=== PATIENT | female | born 1950 | race Caucasian/White ===

== ENCOUNTER 2017-05-16 11:50 | Emergency (ER) | payer MEDICARE, BC ==
[2017-05-16] MEDS ORDERED: ACETAMINOPHEN 325 MG TAB PO ONE (12:29)
[2017-05-16] MEDS ORDERED: CLONIDINE HCL 0.1 MG TABLET PO ONE (12:29)
--- NOTE | 2017-05-16 12:29 | Emergency Department Record ---
History of Present Illness - General Chief Complaint: Headache Migraine Stated Complaint: DE DIOS Time Seen by Provider: 05/16/17 12:23 Source: Patient Mode of Arrival: Ambulatory - History of Present Illness Initial Comments: The patient states that Dr. Hall her PCP discontinued her BP medicines lasty September because after her halfway she was running a lowe blood pressure. About 3 weeks ago, around 04-28-17 she was seen in his office for a regular check up and reported at that time that she was getting headaches. Her blood pressure that day she recalls was 140/ 70', so her medicine was not re-started at that time. Since then her headaches have been worsening, and now she is running a high blood pressure. Today her headache was bad again, at the back of her head, her eyes, and ears feel pressure in them, and she feels that it is likely due to her blood pressure. She denies any stroke like symptoms such as slurred speech, unilateral weakness, vision changes, or confusion. She took one enalaprill and one indipamide at 10;30 this morning ( 2 hours ago), but her headache has not changed, so she came here. Complaint: Headache Onset/Timin -: Month(s) Onset Description: Gradual Location: Occipital Severity: Moderate Severity scale (1-10): 9 Quality: Full Consistency: Constant Improves With: Nothing Worsens With: None Treatments Prior to Arrival: Other Treatment Prior to Arrival Comment:: states took her blood pressure medicine for her high blood pressure of 168/ - Related Data Home Medications Medication Instructions Recorded Confirmed Last Taken Oxybutynin Chloride [Oxybutynin 5 mg PO DAILY 05/16/17 05/16/17 05/16/17 Chloride ER] Allergies Allergy/AdvReac Type Severity Reaction Status Date / Time hydrocodone bitartrate Allergy Mild NAUSEA Verified 05/16/17 12:04 [From Vicodin] Travel Screening - Travel/Exposure Within Last 30 Days Have you traveled within the last 30 days?: No - Travel/Exposure Within Last Year Have you traveled outside the [place] in the last year?: No - Additonal Travel Details Have you been exposed to anyone with a communicable illness?: No - Travel Symptoms Symptom Screening: None Review of Systems Reviewed: No additional complaints except as noted below Constitutional: Reports: As per HPI. Denies: Chills, Fever, Malaise, Night sweats, Weakness, Weight change Eyes: Reports: As per HPI. Denies: Eye discharge, Eye pain, Photophobia, Vision change ENT: Reports: As per HPI. Denies: Congestion, Dental pain, Ear pain, Epistaxis , Hearing loss, Throat pain Respiratory: Reports: As per HPI. Denies: Cough, Dyspnea, Hemoptysis, Stridor, Wheezes Cardiovascular: Reports: As per HPI. Denies: Arrhythmia, Chest pain, Dyspnea on exertion, Edema, Murmurs, Orthopnea, Palpitations, Paroxysmal nocturnal dyspnea, Rheumatic Fever, Syncope Endocrine: Reports: As per HPI. Denies: Fatigue, Heat or cold intolerance, Polydipsia, Polyuria Gastrointestinal: Reports: As per HPI. Denies: Abdominal pain, Constipation, Diarrhea, Hematemesis, Hematochezia, Melena, Nausea, Vomiting Genitourinary: Reports: As per HPI. Denies: Abnormal menses, Discharge, Dyspareunia, Dysuria, Frequency, Hematuria, Incontinence, Retention, Urgency Musculoskeletal: Reports: As per HPI. Denies: Arthralgia, Back pain, Gout, Joint swelling, Myalgia, Neck pain Skin: Reports: As per HPI. Denies: Bruising, Change in color, Change in hair/ nails, Lesions, Pruritus, Rash Neurological: Reports: As per HPI. Denies: Abnormal gait, Confusion, Headache, Numbness, Paresthesias, Seizure, Tingling, Tremors, Vertigo, Weakness Psychiatric: Reports: As per HPI. Denies: Anxiety, Auditory hallucinations, Depression, Homicidal thoughts, Suicidal thoughts, Visual hallucinations Hematological/Lymphatic: Reports: As per HPI. Denies: Anemia, Blood Clots, Easy bleeding, Easy bruising, Swollen glands Past Medical History - SOCIAL HISTORY Smoking Status: Never smoker Alcohol Use: Occasional Drug Use: None - RESPIRATORY Hx Respiratory Disorders: No - CARDIOVASCULAR Hx Cardio Disorders: Yes Hx Hypertension: Yes - GI Hx GI Disorders: No - Hx Genitourinary Disorders: Yes Hx UTI: Yes - ENDOCRINE Hx Endocrine Disorders: No - MUSCULOSKELETAL Hx Arthritis: Yes - PSYCH Hx Psych Problems: No - HEMATOLOGY/ONCOLOGY Hx Chemotherapy: No Hx Radiation Therapy: No Family Medical History Any Significant Family History?: No Physical Exam - General General Appearance: Alert, Oriented x3, Cooperative, No acute distress - Head Head exam: Normal inspection - Eye Eye exam: Normal appearance, PERRL Pupils: Normal accommodation - ENT ENT exam: Normal exam, Mucous membranes moist, Normal external ear exam, Normal orophraynx, TM's normal bilaterally Ear exam: Normal external inspection. negative: External canal tenderness Nasal Exam: Normal inspection. negative: Discharge, Sinus tenderness Mouth exam: Normal external inspection, Tongue normal Teeth exam: Normal inspection. negative: Dental caries Throat exam: Normal inspection. negative: Tonsillar erythema, Tonsillar exudate - Neck Neck exam: Normal inspection, Full ROM. negative: Tenderness - Respiratory Respiratory exam: Normal lung sounds bilaterally. negative: Respiratory distress - Cardiovascular Cardiovascular Exam: Regular rate, Normal rhythm, Normal heart sounds - GI/Abdominal GI/Abdominal exam: Soft, Normal bowel sounds. negative: Tenderness - Rectal Rectal exam: Deferred - exam: Deferred - Extremities Extremities exam: Normal inspection, Full ROM, Normal capillary refill. negative: Tenderness - Back Back exam: Reports: Normal inspection, Full ROM. Denies: Muscle spasm, Rash noted, Tenderness - Neurological Neurological exam: Alert, Normal gait, Oriented X3, Reflexes normal - Psychiatric Psychiatric exam: Normal affect, Normal mood - Skin Skin exam: Dry, Intact, Normal color, Warm Course Vital Signs 05/16/17 11:54 Temperature 97.7 F Pulse Rate 66 Respiratory 18 Rate Blood Pressure 193/88 Pulse Ox 99 - Reevaluation(s) Reevaluation #1: the patient states her headache has [id number] enough to go home. The severity is mild enough to function at her normal level now. She was instructed to flaco eher blood pressure at [facility] 3 times daily or more and log the times and date for Dr. Hall's office. She is to call next week for a recheck appointment. She is to resumer her blood pressure medicines unless her blood pressure is low to normal when checked. 05/16/17 13:52 Reevaluation #2: Paged Dr. Hall with no response. 05/16/17 13:56 Medical Decision Making - Management Options MDM Management: No Additional Work-up Planned - Data Complexity MDM Data: Labs Ordered and/or Reviewed (prior labs from 04-22-17 PCP visit reviewed), Independent Visualization of Image, Tracing, or Specimen (Reviewed blood work from 04-22-17 wnl.) Disposition Disposition: Discharge Clinical Impression: Hypertensive urgency Head ache Qualifiers: Headache type: unspecified Headache chronicity pattern: acute headache Intractability: not intractable Qualified Code(s): R51 - Headache Disposition: Home, Self-Care Instructions: Acute Headache (ED), Hypertension (ED) Additional Instructions: Resume your headache medication as before per Dr. Hall/Eli [employer]. Record times and dates of your blood pressure 3 or more times daily for Dr. Hall/Eli. Tylenol or ibuprofen as directed as needed for headache. Quality - Quality Measures Quality Measures: N/A - Blood Pressure Screening Does Patient Have Any of the Following: No, Active Dx of HTN Blood Pressure Classification: Pre-Hypertensive BP Reading Systolic Measurement: 193 Diastolic Measurement: 88 Screening for High Blood Pressure: Patient Exclusion, Hx of HTN [[id number]]
== END 2017-05-16 14:19 | disposition home or self-care (01) ==
LOC: ER 11:50
DX: I16.0 Hypertensive urgency (principal); I10 Essential (primary) hypertension; R51 Headache
CPT/HCPCS: 99283